=== PATIENT | male | born 1955 | race Caucasian/White ===

== ENCOUNTER → 2016-07-18 | Outpatient (CLI) | payer BC ==
--- NOTE | 2016-07-18 15:21 | Diagnostic Imaging Report ---
Indication: PAIN Technique: 3 views of the right ankle Comparison: none Findings: Small ossific density projects adjacent to the posterior malleolus. This appears corticated as is the adjacent posterior malleolus, so this may reflect old injury or ununited ossification center. No definite acute fractures. No dislocations. The joint spaces are preserved. Impression: No acute process Small ossific density projecting adjacent to the posterior malleolus, may reflect old avulsion injury or ununited ossification center
--- NOTE | 2016-07-19 08:27 | Diagnostic Imaging Report ---
Indication: PAIN Technique: 3 views of the right knee Comparison: None Findings:There are vascular calcifications. No acute fractures. No dislocations. There is minimal degenerative proliferative change. Joint spaces are preserved Impression:No acute process Minimal early degenerative changes
--- NOTE | 2016-07-20 08:28 | Diagnostic Imaging Report ---
Indication: PAIN Technique: 2 views of the right hip Comparison: None Findings: No acute fractures. No dislocations. Joint spaces are preserved Impression: Negative
== END | disposition home or self-care (01) ==
LOC: RAD 11:24
DX: M17.11 Unilateral primary osteoarthritis, right knee (principal); M25.571 Pain in right ankle and joints of right foot; M25.551 Pain in right hip